=== PATIENT | female | born 2000 | race Caucasian/White ===

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

== ENCOUNTER 2022-01-11 19:32 | Emergency (ER) | payer MEDICAID, SELFPAY ==
--- NOTE | ~2022-01-11 | US_ITS ---
EXAMINATION: US PELVIS CLINICAL INFORMATION: Pelvic pain, question ovarian cyst COMPARISON: CT 02/14/2021 TECHNIQUE: Ultrasound of the pelvis is performed using both transabdominal and transvaginal transducers along with Doppler. Transvaginal imaging is performed due to inadequate visualization transabdominally. FINDINGS: The uterus measures 7.5 cm in length and 3.4 x 3.7 cm in AP and transverse dimensions. Endometrial stripe measures 0.5 cm in thickness. The right ovary measures 10.1 x 5.6 x 9.8 cm. Numerous complex cystic structures are present in the right ovary. This includes a 9.2 x 6.2 x 9.4 cm structure with uniform internal echoes. A similar-appearing complex structure measures 3.1 x 2.4 x 1.9 cm with possible solid component. There is also a 3.1 x 3.7 x 3.2 cm cyst. The left ovary measures 6.8 x 4.5 x 5.5 cm. There is a left ovarian complex cystic structure measuring 5.6 x 4.7 x 5.6 cm which also demonstrates diffuse internal echoes and suggestion of a solid component. Doppler evaluation demonstrates bilateral ovarian flow. No free fluid is seen. US/US pelvic and transvaginal IMPRESSION: Multiple large complex cystic structures in the bilateral ovaries, which were also present at least to some degree on CT 02/14/2021. These may represent endometriomas, and evaluation with pre and postcontrast pelvic MRI is recommended.
--- NOTE | ~2022-01-11 | US_ITS ---
EXAMINATION: US PELVIS CLINICAL INFORMATION: Pelvic pain, question ovarian cyst COMPARISON: CT 02/14/2021 TECHNIQUE: Ultrasound of the pelvis is performed using both transabdominal and transvaginal transducers along with Doppler. Transvaginal imaging is performed due to inadequate visualization transabdominally. FINDINGS: The uterus measures 7.5 cm in length and 3.4 x 3.7 cm in AP and transverse dimensions. Endometrial stripe measures 0.5 cm in thickness. The right ovary measures 10.1 x 5.6 x 9.8 cm. Numerous complex cystic structures are present in the right ovary. This includes a 9.2 x 6.2 x 9.4 cm structure with uniform internal echoes. A similar-appearing complex structure measures 3.1 x 2.4 x 1.9 cm with possible solid component. There is also a 3.1 x 3.7 x 3.2 cm cyst. The left ovary measures 6.8 x 4.5 x 5.5 cm. There is a left ovarian complex cystic structure measuring 5.6 x 4.7 x 5.6 cm which also demonstrates diffuse internal echoes and suggestion of a solid component. Doppler evaluation demonstrates bilateral ovarian flow. No free fluid is seen. US/US pelvic ovarian doppler IMPRESSION: Multiple large complex cystic structures in the bilateral ovaries, which were also present at least to some degree on CT 02/14/2021. These may represent endometriomas, and evaluation with pre and postcontrast pelvic MRI is recommended.
[2022-01-11 19:46] VITALS: BP 123/75; PULSE 97; RESP 17; TEMP 37.2; O2SAT 99; BMI 28.0
[2022-01-11 20:36] LABS: Appearance Urine HAZY; Color Urine YELLOW; Glucose Urine UA NEG (NEG); Leukocyte Esterase Urine NEG (NEG); Nitrite Urine NEG (NEG); PH 7.5 (5.0-8.0); UACC Culture Trigger NO; Urine Blood TRACE (NEG); Urine Ketones 15 MG/DL (NEG); Urine Protein NEG (NEG-TRACE)
[2022-01-11 20:41] LABS: UPreg QC Valid YES; Urine Pregnancy NEGATIVE (NEGATIVE)
[2022-01-11 20:49] LABS: Bacteria Urine 1+ /LPF; Squamous Epithelial Cell Urine 4+ /LPF
[2022-01-11 20:50] LABS: Mucus Urine TRACE /LPF
[2022-01-11] MEDS: Ketorolac Tromethamine 30 MG/ML VIAL IVPUSH (20:50)
[2022-01-11] MEDS: 0.9 % Sodium Chloride 1,000 ML 999 ML IV (20:50)
[2022-01-11 20:51] LABS: MANUAL DIFF FLAG NO
[2022-01-11 20:53] LABS: Basophils Percent Auto 0.2 % (0-2); Eosinophils Percent Auto 0.1 % (0-4); Hematocrit 33.6 % (37.0-47.0); Hemoglobin 10.7 g/dl (12.0-16.0); Imm Gran Abs Auto 0.04 X10*3/uL (0.00-0.03); Imm Gran Pct Auto 0.4 % (0.0-0.4); Lymphocytes Absolute Auto 1.3 X10*3/uL (1.2-4.9); Lymphocytes Percent Auto 11.8 % (20-40); Mean Corpuscular HGB Conc 31.8 g/dl (31.0-35.0); Mean Corpuscular Hemoglobin 27.5 pg (27.0-33.0); Mean Corpuscular Volume 86.4 fL (80.0-98.0); Mean Platelet Volume 8.5 fL (9.4-12.3); Monocytes Absolute Auto 0.6 X10*3/uL (0.1-1.2); Monocytes Percent Auto 5.4 % (2-11); Neutrophils Absolute Auto 8.9 x10*3/uL (2.0-8.3); Neutrophils Percent Auto 82.1 % (45-73); Platelet Count 303 X10*3/uL (160-400); Red Blood Count 3.89 X10*6/uL (4.20-5.50); Red Cell Distribution Width 14.9 % (11.0-16.0); White Blood Count 10.9 X10*3/uL (4.8-10.8)
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
[2022-01-11 21:09] LABS: Alanine Aminotransferase 11 U/L (0-31); Albumin Level 4.3 g/dL (3.5-5.0); Alkaline Phosphatase 86 U/L (39-117); Anion Gap 12 (12-20); Aspartate Amino Transferase 15 U/L (5-31); Bilirubin Total 0.7 mg/dL (0.0-1.0); Blood Urea Nitrogen 6 mg/dL (9-16); Calcium 9.1 mg/dL (8.4-10.2); Carbon Dioxide 24 mmol/L (22-29); Chloride 106 mmol/L (96-108); Creatinine Clr Calc Pharmacy 138.5; Estimated Glomerular Filt Rate > 60; Glucose Random 92 mg/dL (60-115); Sodium 138 mmol/L (135-145); Total Protein 7.4 g/dL (6.5-8.0)
[2022-01-11 22:02] VITALS: BP 110/70; PULSE 85; RESP 18; TEMP 36.9; O2SAT 99
[2022-01-11] MEDS: Morphine Sulfate 4 MG/ML CARTRIDGE IVPUSH (22:50)
[2022-01-11] MEDS: ondansetron HCL 4 MG/2 ML VIAL IVPUSH (22:50)
[2022-01-11 23:01] VITALS: BP 120/71; PULSE 98; RESP 16; O2SAT 99
== END 2022-01-12 00:03 | disposition home or self-care (01) ==
PROVIDERS: Emergency Provider Internal Medicine
DX: E28.2 Polycystic ovarian syndrome (principal); R10.2 Pelvic and perineal pain; Z79.899 Other long term (current) drug therapy
CPT/HCPCS: 36415; 76830; 76856; 80053; 81001; 81025; 85025; 93975; 99284; J1885; J2270; J2405

== ENCOUNTER 2022-01-23 15:35 | Emergency (ER) | payer MEDICAID, SELFPAY ==
[2022-01-23 16:11] VITALS: BP 106/73; PULSE 100; RESP 18; TEMP 36.8; O2SAT 98; BMI 24.0
[2022-01-23 16:24] LABS: Strep A Nucleic Acid Negative (Negative)
[2022-01-23 16:31] LABS: COVID-19 Test Negative (Negative); IDNOW Serial# 16C4AD1C; Influenza A Positive (Negative); Influenza B2 Negative (Negative)
--- NOTE | 2022-01-23 16:52 | ED.GENADULT ---
HPI - General Adult General Chief complaint: General Medical Stated complaint: Sore throat/Headache Time Seen by Provider: 01/23/22 16:43 Source: patient Mode of arrival: ambulatory History of Present Illness HPI narrative: 21-year-old female presenting to the ED complaining of sore throat, myalgias, chills, slight dry cough since yesterday. Denies fever, ear pain, SOB, CP, recent travel, sick contacts Onset (ago): day(s) Related Data Previous Rx's Medication Instructions Recorded hydroxyzine HCl 25 mg tablet 25 mg PO TID PRN #10 tab 02/25/21 naproxen 500 mg tablet 500 mg PO BID PRN #20 tab 11/05/21 nitrofurantoin 100 mg PO BID #14 cap 11/05/21 monohydrate/macrocrystals 100 mg capsule (Macrobid) desogestrel 0.15 mg-ethinyl 1 tab PO DAILY #28 tab 01/11/22 estradiol 0.03 mg tablet (Apri) ibuprofen 600 mg tablet 600 mg PO Q6H PRN #20 tab 01/11/22 tramadol 50 mg tablet 50 mg PO Q6H PRN #20 tab 01/11/22 acetaminophen 500 mg tablet 500 mg PO Q6H PRN #20 tab 01/23/22 (Tylenol Extra Strength) fluticasone propionate 50 2 spray INTRANASAL DAILY #16 g 01/23/22 mcg/actuation nasal spray,suspension (Flonase Allergy Relief) oseltamivir 75 mg capsule (Tamiflu) 75 mg PO BID 5 Days #10 cap 01/23/22 Allergies Allergy/AdvReac Type Severity Reaction Status Date / Time No Known Allergies Allergy Verified 01/23/22 16:13 Review of Systems Review of Systems: Constitutional: No Fever, + Chills ENT/Mouth: No Ear Pain, + Nasal Congestion, No Sinus Pain, No Hoarseness, + sore throat, + Rhinorrhea, No Swallowing Difficulty Cardiovascular: No Chest Pain, No SOB Respiratory: + Cough, No Sputum, No Wheezing Gastrointestinal: No Nausea, No Vomiting, No Diarrhea, No Abdominal pain Genitourinary: No Dysuria, No Urinary Frequency, No Flank Pain Musculoskeletal: No joint pain, + Myalgias, No Joint Swelling Skin: No Skin Lesions, No rash Neuro: No Weakness, No Numbness, No Paresthesias Yes all other systems are reviewed and are negative [facility] Past Medical History Attestation statement: The following information was validated with the patient. Medical History Right upper quadrant pain Surgical History History of cholecystectomy Social History Social History Alcohol intake: never Substance Use Type: Marijuana Advance Directives: No Advance Directives Information Provided: No Physical Exam ED Vital Signs: Vital Signs - 24 hr 01/23/22 16:11 Temperature 98.3 F Pulse Rate 100 Respiratory Rate 18 Blood Pressure 106/73 Pulse Oximetry 98 BMI result Body Mass Index 24.0 Const General: cooperative, healthy appearing and no acute distress Orientation/consciousness: patient oriented x3 Limitations: no limitations HENMT Head: Yes normal to inspection and Yes atraumatic Ears: hearing grossly normal bilaterally, external ears normal, TM's normal bilaterally and mastoids normal General nose exam: Normal external nose present Face and sinus: Yes normal facial exam Throat: Yes uvula midline, Yes abnormal tonsil (Mild bilateral tonsillar swelling, no erythema or exudates), No peritonsillar mass, No uvula laterally displaced and No uvular edema Eyes General: appearance normal, both eyes and all related structures EOM: EOMs intact bilaterally Neck Neck: Yes normal visual inspection and Yes no meningeal signs Resp Effort & Inspection: normal respiratory effort, no respiratory distress and no stridor Auscultation: clear to auscultation bilaterally, no crackles, no rales, no rhonchi and no wheezes Cardio Rate: regular rate Heart sounds: S1 normal heart sound present and S2 normal heart sound present Skin Rashes: no rashes Wounds: no wounds Neuro General: patient oriented x3, tone normal and no meningeal signs Gait exam (Neuro): Normal gait present Extrem General: Yes normal to inspection Course Course Course Narrative: -influenza A positive. COVID-19 and strep negative. Results discussed with patient including worrisome signs and symptoms and strict return precautions Medical Decision Making MDM Narrative Medical decision making narrative: 21-year-old female presenting to the ED complaining of sore throat, myalgias, chills, slight dry cough since yesterday. On exam vital signs stable, NAD/nontoxic appearing. Concern for viral illness vs pharyngitis Symptoms atypical for pneumonia, ACS or PE Plan: COVID-19/influenza testing, rapid strep Medical Records Medical records reviewed: Yes I reviewed the patient's medical records. Lab Data Lab results reviewed: Yes I reviewed the patient's lab results. Labs: Lab Results 01/23/22 01/23/22 01/23/22 Range/Units 16:08 16:08 16:08 COVID-19 (MAGNUS) Negative (Negative) COVID-19 Clin Com See Note Influenza Type A (ROXANNA) Positive A (Negative) Influenza Type B (ROXANNA) Negative (Negative) Influenza A & B Note See Note S. pyogenes GrpA ROXANNA Negative (Negative) Discharge Plan Discharge Clinical Impression: Influenza A Patient Disposition: Home, Self-Care Instructions: Influenza (DC) Additional Instructions: You have the flu. Your contagious. Wash her hands, wear mask Stay hydrated. Take Tylenol Motrin as needed. Tamiflu is antiviral medication, take as prescribed. Stay away from young children/baby's and old people If symptoms persist or worsen, you have fever unresolved with medications, shortness of breath or chest pain please return to the ED Prescriptions: New oseltamivir [Tamiflu] 75 mg capsule 75 mg PO BID 5 Days Qty: 10 0RF acetaminophen [Tylenol Extra Strength] 500 mg tablet 500 mg PO Q6H PRN (Reason: pain or fever) Qty: 20 0RF fluticasone propionate [Flonase Allergy Relief] 50 mcg/actuation spray,suspension 2 spray intranasal DAILY Qty: 16 0RF Rx Instructions: administer into each nostril No Action hydroxyzine HCl 25 mg tablet 25 mg PO TID PRN (Reason: anxiety) Qty: 10 0RF nitrofurantoin monohyd/m-cryst [Macrobid] 100 mg capsule 100 mg PO BID Qty: 14 0RF Rx Instructions: must administer with a meal/food naproxen 500 mg tablet 500 mg PO BID PRN (Reason: pain) Qty: 20 0RF tramadol 50 mg tablet 50 mg PO Q6H PRN (Reason: pain) Qty: 20 0RF ibuprofen 600 mg tablet 600 mg PO Q6H PRN (Reason: pain) Qty: 20 0RF desogestrel-ethinyl estradiol [Apri] 0.15-0.03 mg tablet 1 tab PO DAILY Qty: 28 0RF Referrals: [facility] [Primary Care Provider] - 1 week Stand Alone Forms: Work/School Release Interventions: ED Discharge Assessment Last Done: 01/23/22 17:35 Discharge Date/Time: 01/23/22 17:35
== END 2022-01-23 17:35 | disposition home or self-care (01) ==
PROVIDERS: Emergency Provider Emergency Medicine Emergency Medical Services
DX: J10.1 Influenza due to other identified influenza virus with other respiratory manifestations (principal); R51.9 Headache, unspecified; M79.10 Myalgia, unspecified site; Z20.822 Contact with and (suspected) exposure to COVID-19; Z79.899 Other long term (current) drug therapy
CPT/HCPCS: 87502; 87635; 87651; 99283

== ENCOUNTER 2022-03-30 12:58 | Emergency (ER) | payer MEDICAID, SELFPAY ==
--- NOTE | ~2022-03-30 | XR_ITS ---
EXAMINATION: XR CHEST CLINICAL INFORMATION: Syncope COMPARISON: None TECHNIQUE: Frontal view of the chest was obtained. FINDINGS: No significant abnormality is noted involving the heart, lungs, mediastinum, bony thorax or soft tissues. XR/XR chest 1V IMPRESSION: Unremarkable examination.
[2022-03-30 13:53] VITALS: BP 102/72; PULSE 86; O2SAT 98
[2022-03-30 14:07] VITALS: BP 102/71; PULSE 81; RESP 20; TEMP 36.8; O2SAT 99; BMI 26.6
--- NOTE | 2022-03-30 14:19 | ECG_ITS ---
Test Reason : syncope Blood Pressure : / mmHG Vent. Rate : 081 BPM Atrial Rate : 081 BPM P-R Int : 166 ms QRS Dur : 070 ms QT Int : 340 ms P-R-T Axes : 078 050 047 degrees QTc Int : 394 ms Normal sinus rhythm Normal ECG When compared with ECG of 05-NOV-2021 20:44, No significant change was found Referred By: Generic ED Physician Electronically Signed By:NICOLASA MALLOY
[2022-03-30 15:43] LABS: MANUAL DIFF FLAG NO
[2022-03-30 15:44] LABS: Basophils Absolute Auto 0.1 X10*3/uL (0.0-0.2); Basophils Percent Auto 0.6 % (0-2); Eosinophils Absolute Auto 0.1 X10*3/uL (0.0-0.4); Eosinophils Percent Auto 0.6 % (0-4); Hematocrit 34.1 % (37.0-47.0); Hemoglobin 10.8 g/dl (12.0-16.0); Imm Gran Abs Auto 0.06 X10*3/uL (0.00-0.03); Imm Gran Pct Auto 0.7 % (0.0-0.4); Lymphocytes Absolute Auto 1.3 X10*3/uL (1.2-4.9); Lymphocytes Percent Auto 14.3 % (20-40); Mean Corpuscular HGB Conc 31.7 g/dl (31.0-35.0); Mean Corpuscular Hemoglobin 27.1 pg (27.0-33.0); Mean Corpuscular Volume 85.5 fL (80.0-98.0); Mean Platelet Volume 8.7 fL (9.4-12.3); Monocytes Absolute Auto 0.5 X10*3/uL (0.1-1.2); Monocytes Percent Auto 5.2 % (2-11); Neutrophils Percent Auto 78.6 % (45-73); Platelet Count 371 X10*3/uL (160-400); Red Blood Count 3.99 X10*6/uL (4.20-5.50); Red Cell Distribution Width 14.1 % (11.0-16.0); White Blood Count 8.8 X10*3/uL (4.8-10.8)
[2022-03-30 16:04] LABS: Anion Gap 14 (12-20); Blood Urea Nitrogen 7 mg/dL (9-16); Calcium 9.6 mg/dL (8.4-10.2); Carbon Dioxide 24 mmol/L (22-29); Chloride 104 mmol/L (96-108); Creatinine Clr Calc Pharmacy 127.2; Estimated Glomerular Filt Rate > 60; Glucose Random 87 mg/dL (60-115); Potassium 4.3 mmol/L (3.3-5.1); Sodium 138 mmol/L (135-145)
[2022-03-30 16:11] LABS: Troponin-I High Sensitivity < 3.5 ng/L (<3.5-17.0)
== END 2022-03-30 19:00 | disposition left against medical advice (07) ==
PROVIDERS: Emergency Provider Emergency Medicine
DX: R55 Syncope and collapse (principal); R42 Dizziness and giddiness; Z79.899 Other long term (current) drug therapy
CPT/HCPCS: 36415; 71045; 80048; 84484; 85025; 93005; 99281; 99283

== ENCOUNTER 2022-05-10 14:14 | Emergency (ER) | payer MEDICAID, SELFPAY ==
[2022-05-10 15:07] VITALS: BP 105/65; PULSE 78; RESP 18; TEMP 37.2; O2SAT 98; BMI 27.4
[2022-05-10 15:19] LABS: COVID-19 Test Negative (Negative)
== END 2022-05-10 20:08 | disposition left against medical advice (07) ==
PROVIDERS: Emergency Provider Emergency Medicine
DX: Z20.822 Contact with and (suspected) exposure to COVID-19 (principal)
CPT/HCPCS: 87635; 99281; 99283

== ENCOUNTER 2022-06-04 15:13 | Emergency (ER) | payer MEDICAID, SELFPAY ==
--- NOTE | ~2022-06-04 | XR_ITS ---
EXAMINATION: XR CHEST CLINICAL INFORMATION: Covid. Pneumonia. COMPARISON: Chest x-ray 03/30/2022 TECHNIQUE: Frontal view of the chest was obtained. FINDINGS: No significant abnormality is noted involving the heart, lungs, mediastinum, bony thorax or soft tissues. XR/XR chest 1V IMPRESSION: Unremarkable examination.
[2022-06-04 15:26] VITALS: BP 129/69; PULSE 104; RESP 19; TEMP 37.4; O2SAT 99; BMI 26.5
[2022-06-04] MEDS: Acetaminophen 325 MG TABLET 975 MG PO (17:21)
[2022-06-04] MEDS: Ondansetron ODT 4 MG TAB.RAPDIS TRANSLINGU (18:59)
--- NOTE | 2022-06-04 19:05 | ED_ITS ---
HPI - General Adult General Chief complaint: Upper Respiratory Symptoms <ESTER Briggs Last Filed: 06/05/22 10:43> Stated complaint: covid +, anemic, throwing up light blood <ESTER Briggs Last Filed: 06/05/22 10:43> Time Seen by Provider: 06/04/22 17:55 <ESTER Briggs Last Filed: 06/05/22 10:43> Source: patient <ESTER Briggs Last Filed: 06/05/22 10:43> Mode of arrival: ambulatory <ESTER Briggs Last Filed: 06/05/22 10:43> Limitations: no limitations <ESTER Briggs Last Filed: 06/05/22 10:43> History of Present Illness HPI narrative: 22-year-old female presents to ED for body aches, headaches, chills, nausea, and vomitting. Patient states he tested positive for COVID at home today. Patient states having symptoms for the past 2 days. Patient denies any coughing, chest pain, shortness of breath. Patient states she felt tired and weak so she wanted make sure her blood count was not low. Patient states she is anemic. Patient denies any vaginal bleeding, rectal bleeding, coughing up blood, or vomiting blood. <ESTER Briggs Last Filed: 06/05/22 10:43> Related Data Home medications: Previous Rx's Medication Instructions Recorded hydroxyzine HCl 25 mg tablet 25 mg PO TID PRN anxiety #10 tabs 02/25/21 naproxen 500 mg tablet 500 mg PO BID PRN pain #20 tabs 11/05/21 nitrofurantoin 100 mg PO BID #14 caps 11/05/21 monohydrate/macrocrystals 100 mg capsule (Macrobid) desogestrel 0.15 mg-ethinyl 1 tab PO DAILY #28 tabs 01/11/22 estradiol 0.03 mg tablet (Apri) ibuprofen 600 mg tablet 600 mg PO Q6H PRN pain #20 tabs 01/11/22 tramadol 50 mg tablet 50 mg PO Q6H PRN pain #20 tabs 01/11/22 acetaminophen 500 mg tablet 500 mg PO Q6H PRN pain or fever 01/23/22 (Tylenol Extra Strength) #20 tabs fluticasone propionate 50 2 spray intranasal DAILY #16 grams 01/23/22 mcg/actuation nasal spray,suspension (Flonase Allergy Relief) oseltamivir 75 mg capsule (Tamiflu) 75 mg PO BID 5 days #10 caps 01/23/22 <ESTER Briggs - Last Filed: 06/05/22 10:43> Allergies/adverse reactions: Allergies Allergy/AdvReac Type Severity Reaction Status Date / Time No Known Allergies Allergy Verified 03/30/22 14:15 <ESTER Briggs - Last Filed: 06/05/22 10:43> Review of Systems Review of Systems: Nausea, vomiting, weakness, COVID positive <ESTER Briggs - Last Filed: 06/05/22 10:43> Yes all other systems are reviewed and are negative <ESTER Briggs - Last Filed: 06/05/22 10:43> [facility] Past Medical History Medical History: Medical History Right upper quadrant pain <ESTER Briggs - Last Filed: 06/05/22 10:43> Surgical History: Surgical History History of cholecystectomy <ESTER Briggs - Last Filed: 06/05/22 10:43> Social History Social History: Social History Alcohol intake: never Substance Use Type: Marijuana Advance Directives: No Advance Directives Information Provided: No <ESTER Briggs - Last Filed: 06/05/22 10:43> Physical Exam ED Vital Signs: Vital Signs - 24 hr 06/04/22 15:26 Temperature 99.4 F Pulse Rate 104 H Respiratory Rate 19 Blood Pressure 129/69 Pulse Oximetry 99 Oxygen Delivery Method Room Air BMI result Body Mass Index 26.5 <ESTER Briggs - Last Filed: 06/05/22 10:43> Vital Signs - 24 hr 06/04/22 15:26 Temperature 99.4 F Pulse Rate 104 H Respiratory Rate 19 Blood Pressure 129/69 Pulse Oximetry 99 Oxygen Delivery Method Room Air BMI result Body Mass Index 26.5 <Anjali Myrick [facility] Last Filed: 06/04/22 20:14> Const General: cooperative, healthy appearing, comfortable, no acute distress, well developed, alert, awake and Physically active <ESTER Briggs Last Filed: 10:43> Orientation/consciousness: oriented to person, oriented to place, oriented to time and patient oriented x3 <ESTER Briggs Last Filed: 06/05/22 10:43> HENMT Head: Yes normal to inspection, Yes No palpable skull fracture present, Yes n ormocephalic, Yes atraumatic and No abrasion <Kael Bronson [facility] Last Filed: 06/05/22 10:43> Eyes General: appearance normal, both eyes and all related structures <ESTER Briggs Last Filed: 06/05/22 10:43> Neck Neck: Yes normal visual inspection, Yes full ROM, Yes no lymphadenopathy, Yes no meningeal signs, Yes trachea midline, Yes supple, No anterior neck swelling and No tender <ESTER Briggs Last Filed: 06/05/22 10:43> Chest Chest palpation & inspection: normal inspection of the chest and normal palpation of entire chest wall <ESTER Briggs Last Filed: 06/05/22 10:43> Resp Effort & Inspection: normal respiratory effort and able to speak in complete sentences <Kael Bronson [facility] Last Filed: 06/05/22 10:43> Auscultation: clear to auscultation bilaterally <ESTER Briggs Last Filed: 06/05/22 10:43> Cardio Jugular venous distension: no JVD <Kael Bronson [facility] Last Filed: 06/05/22 10:43> Heart sounds: S1 normal heart sound present and S2 normal heart sound present <ESTER Briggs Last Filed: 06/05/22 10:43> GI Inspection: Yes normal to inspection and No abdominal wall ecchymosis <ESTER Briggs Last Filed: 06/05/22 10:43> Palpation (GI): Soft to palpation, not firm, nontender, no guarding and not rigid <ESTER Briggs Last Filed: 06/05/22 10:43> General: No CVA tenderness and Yes no CVA tenderness <Kael Audie, PA Natalia Last Filed: 06/05/22 10:43> Back/Spine/Pelvis Back: no CVA tenderness, No CVA tenderness and No back tenderness <Kael Audie, PA Natalia Last Filed: 06/05/22 10:43> Skin General skin exam: no rashes or lesions noted and elasticity normal <Kael Audie, PA Natalia Last Filed: 06/05/22 10:43> Neuro General: oriented to person, oriented to place, oriented to time, patient oriented x3, gait normal and no meningeal signs <Kael Audie, PA Natalia Last Filed: 06/05/22 10:43> Cranial nerves: Yes CN's II-XII intact bilaterally <ESTER Briggs Natalia Last Filed: 06/05/22 10:43> Extrem General: Yes normal to inspection and Yes full ROM <ESTER Briggs Natalia Last Filed: 06/05/22 10:43> Psych Appearance: grossly normal, well kempt and not disheveled <ESTER Briggs Natalia Last Filed: 06/05/22 10:43> Course Course Course Narrative: Patient well-appearing. Will order labs due to the patient stating she is anemic and feeling weak. Chest x-ray will be ordered although patient denies any shortness of breath or coughing. Patient is not having chest pain, shortness of breath, leg swelling, calf pain. Not suspecting PE, myocarditis, M I. EKG, D-dimer, and troponin not indicated. Case signed out to [facility], [place]. Patient given oral hydration <ESTER Briggs Natalia Last Filed: 06/05/22 10:43> Patient well-appearing. Will order labs due to the patient stating she is anemic and feeling weak. Chest x-ray will be ordered although patient denies any shortness of breath or coughing. Patient is not having chest pain, shortness of breath, leg swelling, calf pain. Not suspecting PE, myocarditis, [place]. EKG, D-dimer, and troponin not indicated. Case signed out to [facility], [place]. Patient given oral hydration 2013: Patient's work up is normal, no acute findings other than her previously known positive COVID-19 status. All results explained to the patient. Stressed strict return precautions to the patient. <ESTER Gamboa - Last Filed: 06/04/22 20:14> Medical Decision Making Lab Data Result diagrams: : 06/04/22 19:17 06/04/22 19:17 <ESTER Briggs - Last Filed: 06/05/22 10:43> Labs: Lab Results 06/04/22 06/04/22 06/04/22 Range/Units 19:17 19:17 19:17 WBC 5.3 (4.8-10.8) X10*3/uL RBC 3.75 L (4.20-5.50) X10*6/uL Hgb 9.8 L (12.0-16.0) g/dl Hct 29.7 L (37.0-47.0) % MCV 79.2 L (80.0-98.0) fL MCH 26.1 L (27.0-33.0) pg MCHC 33.0 (31.0-35.0) g/dl RDW 14.3 (11.0-16.0) % Plt Count 293 (160-400) X10*3/uL MPV 8.5 L (9.4-12.3) fL Immature Gran % (Auto) 0.4 (0.0-0.4) % Neut % (Auto) 83.9 H (45-73) % Lymph % (Auto) 4.9 L (20-40) % Coleman % (Auto) 9.8 (2-11) % Eos % (Auto) 0.2 (0-4) % Baso % (Auto) 0.8 (0-2) % Lymph # (Auto) 0.3 L (1.2-4.9) X10*3/uL Coleman # (Auto) 0.5 (0.1-1.2) X10*3/uL Eos # (Auto) 0.0 (0.0-0.4) X10*3/uL Baso # (Auto) 0.0 (0.0-0.2) X10*3/uL Abs Immat Gran (auto) 0.02 (0.00-0.03) X10*3/uL Absolute Neuts (auto) 4.5 (2.0-8.3) x10*3/uL Absolute Nucleated RBC 0.000 (0.0-0.012) X10*3/uL Nucleated RBC % (auto) 0.0 (0.0-0.2) /100WBC PT 12.7 (10.0-13.1) SEC INR 1.1 (0.9-1.1) APTT 31.0 (26.0-36.4) SEC Sodium 139 (135-145) mmol/L Potassium 3.7 (3.3-5.1) mmol/L Chloride 108 (96-108) mmol/L Carbon Dioxide 19 L (22-29) mmol/L Anion Gap 16 (12-20) BUN 8 L (9-16) mg/dL Creatinine 0.62 (0.5-1.4) mg/dL Estim Creat Clear Calc 134.0 Estimated GFR > 60 Random Glucose 96 (60-115) mg/dL Calcium 8.7 D (8.4-10.2) mg/dL Total Bilirubin 0.3 (0.0-1.0) mg/dL AST 19 (5-31) U/L ALT 13 (0-31) U/L Alkaline Phosphatase 79 (39-117) U/L Total Protein 7.1 (6.5-8.0) g/dL Albumin 4.2 (3.5-5.0) g/dL Beta HCG, Quant < 2 mIU/mL COVID-19 (MAGNUS) (Negative) COVID-19 Clin Com 06/04/22 Range/Units 19:21 WBC (4.8-10.8) X10*3/uL RBC (4.20-5.50) X10*6/uL Hgb (12.0-16.0) g/dl Hct (37.0-47.0) % MCV (80.0-98.0) fL MCH (27.0-33.0) pg MCHC (31.0-35.0) g/dl RDW (11.0-16.0) % Plt Count (160-400) X10*3/uL MPV (9.4-12.3) fL Immature Gran % (Auto) (0.0-0.4) % Neut % (Auto) (45-73) % Lymph % (Auto) (20-40) % Coleman % (Auto) (2-11) % Eos % (Auto) (0-4) % Baso % (Auto) (0-2) % Lymph # (Auto) (1.2-4.9) X10*3/uL Coleman # (Auto) (0.1-1.2) X10*3/uL Eos # (Auto) (0.0-0.4) X10*3/uL Baso # (Auto) (0.0-0.2) X10*3/uL Abs Immat Gran (auto) (0.00-0.03) X10*3/uL Absolute Neuts (auto) (2.0-8.3) x10*3/uL Absolute Nucleated RBC (0.0-0.012) X10*3/uL Nucleated RBC % (auto) (0.0-0.2) /100WBC PT (10.0-13.1) SEC INR (0.9-1.1) APTT (26.0-36.4) SEC Sodium (135-145) mmol/L Potassium (3.3-5.1) mmol/L Chloride (96-108) mmol/L Carbon Dioxide (22-29) mmol/L Anion Gap (12-20) BUN (9-16) mg/dL Creatinine (0.5-1.4) mg/dL Estim Creat Clear Calc Estimated GFR Random Glucose (60-115) mg/dL Calcium (8.4-10.2) mg/dL Total Bilirubin (0.0-1.0) mg/dL AST (5-31) U/L ALT (0-31) U/L Alkaline Phosphatase (39-117) U/L Total Protein (6.5-8.0) g/dL Albumin (3.5-5.0) g/dL Beta HCG, Quant mIU/mL COVID-19 (MAGNUS) Positive A (Negative) COVID-19 Clin Com See Note <ESTER Briggs - Last Filed: 06/05/22 10:43> Lab Results 06/04/22 06/04/22 06/04/22 Range/Units 19:17 19:17 19:17 WBC 5.3 (4.8-10.8) X10*3/uL RBC 3.75 L (4.20-5.50) X10*6/uL Hgb 9.8 L (12.0-16.0) g/dl Hct 29.7 L (37.0-47.0) % MCV 79.2 L (80.0-98.0) fL MCH 26.1 L (27.0-33.0) pg MCHC 33.0 (31.0-35.0) g/dl RDW 14.3 (11.0-16.0) % Plt Count 293 (160-400) X10*3/uL MPV 8.5 L (9.4-12.3) fL Immature Gran % (Auto) 0.4 (0.0-0.4) % Neut % (Auto) 83.9 H (45-73) % Lymph % (Auto) 4.9 L (20-40) % Coleman % (Auto) 9.8 (2-11) % Eos % (Auto) 0.2 (0-4) % Baso % (Auto) 0.8 (0-2) % Lymph # (Auto) 0.3 L (1.2-4.9) X10*3/uL Coleman # (Auto) 0.5 (0.1-1.2) X10*3/uL Eos # (Auto) 0.0 (0.0-0.4) X10*3/uL Baso # (Auto) 0.0 (0.0-0.2) X10*3/uL Abs Immat Gran (auto) 0.02 (0.00-0.03) X10*3/uL Absolute Neuts (auto) 4.5 (2.0-8.3) x10*3/uL Absolute Nucleated RBC 0.000 (0.0-0.012) X10*3/uL Nucleated RBC % (auto) 0.0 (0.0-0.2) /100WBC PT 12.7 (10.0-13.1) SEC INR 1.1 (0.9-1.1) APTT 31.0 (26.0-36.4) SEC Sodium 139 (135-145) mmol/L Potassium 3.7 (3.3-5.1) mmol/L Chloride 108 (96-108) mmol/L Carbon Dioxide 19 L (22-29) mmol/L Anion Gap 16 (12-20) BUN 8 L (9-16) mg/dL Creatinine 0.62 (0.5-1.4) mg/dL Estim Creat Clear Calc 134.0 Estimated GFR > 60 Random Glucose 96 (60-115) mg/dL Calcium 8.7 D (8.4-10.2) mg/dL Total Bilirubin 0.3 (0.0-1.0) mg/dL AST 19 (5-31) U/L ALT 13 (0-31) U/L Alkaline Phosphatase 79 (39-117) U/L Total Protein 7.1 (6.5-8.0) g/dL Albumin 4.2 (3.5-5.0) g/dL Beta HCG, Quant < 2 mIU/mL COVID-19 (MAGNUS) (Negative) COVID-19 Clin Com 06/04/22 Range/Units 19:21 WBC (4.8-10.8) X10*3/uL RBC (4.20-5.50) X10*6/uL Hgb (12.0-16.0) g/dl Hct (37.0-47.0) % MCV (80.0-98.0) fL MCH (27.0-33.0) pg MCHC (31.0-35.0) g/dl RDW (11.0-16.0) % Plt Count (160-400) X10*3/uL MPV (9.4-12.3) fL Immature Gran % (Auto) (0.0-0.4) % Neut % (Auto) (45-73) % Lymph % (Auto) (20-40) % Coleman % (Auto) (2-11) % Eos % (Auto) (0-4) % Baso % (Auto) (0-2) % Lymph # (Auto) (1.2-4.9) X10*3/uL Coleman # (Auto) (0.1-1.2) X10*3/uL Eos # (Auto) (0.0-0.4) X10*3/uL Baso # (Auto) (0.0-0.2) X10*3/uL Abs Immat Gran (auto) (0.00-0.03) X10*3/uL Absolute Neuts (auto) (2.0-8.3) x10*3/uL Absolute Nucleated RBC (0.0-0.012) X10*3/uL Nucleated RBC % (auto) (0.0-0.2) /100WBC PT (10.0-13.1) SEC INR (0.9-1.1) APTT (26.0-36.4) SEC Sodium (135-145) mmol/L Potassium (3.3-5.1) mmol/L Chloride (96-108) mmol/L Carbon Dioxide (22-29) mmol/L Anion Gap (12-20) BUN (9-16) mg/dL Creatinine (0.5-1.4) mg/dL Estim Creat Clear Calc Estimated GFR Random Glucose (60-115) mg/dL Calcium (8.4-10.2) mg/dL Total Bilirubin (0.0-1.0) mg/dL AST (5-31) U/L ALT (0-31) U/L Alkaline Phosphatase (39-117) U/L Total Protein (6.5-8.0) g/dL Albumin (3.5-5.0) g/dL Beta HCG, Quant mIU/mL COVID-19 (MAGNUS) Positive A (Negative) COVID-19 Clin Com See Note <ESTER Gamboa - Last Filed: 06/04/22 20:14> Discharge Plan Discharge Clinical Impression: COVID-19 <ESTER Briggs - Last Filed: 06/05/22 10:43> Patient Disposition: Home, Self-Care <ESTER Briggs Last Filed: 06/05/22 10:43> Instructions: COVID-19 (Coronavirus Disease 2019) (ED) <ESTER Briggs Last Filed: 06/05/22 10:43> Additional Instructions: Return to the ED immediately for any chest pain, shortness of breath, w eakness, dizziness, coughing up blood, leg swelling, calf pain, or any other concerning symptoms. Since you are not vaccinated recommend 7 days isolation. <ESTER Briggs - Last Filed: 06/05/22 10:43> Prescriptions: No Action hydroxyzine HCl 25 mg tablet 25 mg PO TID PRN (Reason: anxiety) Qty: 10 0RF nitrofurantoin monohyd/m-cryst [Macrobid] 100 mg capsule 100 mg PO BID Qty: 14 0RF Rx Instructions: must administer with a meal/food naproxen 500 mg tablet 500 mg PO BID PRN (Reason: pain) Qty: 20 0RF tramadol 50 mg tablet 50 mg PO Q6H PRN (Reason: pain) Qty: 20 0RF ibuprofen 600 mg tablet 600 mg PO Q6H PRN (Reason: pain) Qty: 20 0RF desogestrel-ethinyl estradiol [Apri] 0.15-0.03 mg tablet 1 tab PO DAILY Qty: 28 0RF oseltamivir [Tamiflu] 75 mg capsule 75 mg PO BID 5 Days Qty: 10 0RF acetaminophen [Tylenol Extra Strength] 500 mg tablet 500 mg PO Q6H PRN (Reason: pain or fever) Qty: 20 0RF fluticasone propionate [Flonase Allergy Relief] 50 mcg/actuation spray,suspension 2 spray intranasal DAILY Qty: 16 0RF Rx Instructions: administer into each nostril <ESTER Briggs - Last Filed: 06/05/22 10:43> Stand Alone Forms: Work/School Release <ESTER Briggs - Last Filed: 06/05/22 10:43> Interventions: ED Discharge Assessment Last Done: 06/04/22 20:39 <ESTER Briggs - Last Filed: 06/05/22 10:43> Discharge Date/Time: 06/04/22 20:40 <ESTER Briggs - Last Filed: 06/05/22 10:43> Print Language: Turkmen <ESTER Briggs - Last Filed: 06/05/22 10:43>
[2022-06-04 19:22] LABS: Basophils Percent Auto 0.8 % (0-2); Eosinophils Percent Auto 0.2 % (0-4); Hematocrit 29.7 % (37.0-47.0); Hemoglobin 9.8 g/dl (12.0-16.0); Imm Gran Abs Auto 0.02 X10*3/uL (0.00-0.03); Imm Gran Pct Auto 0.4 % (0.0-0.4); Lymphocytes Absolute Auto 0.3 X10*3/uL (1.2-4.9); Lymphocytes Percent Auto 4.9 % (20-40); MANUAL DIFF FLAG NO; Mean Corpuscular Hemoglobin 26.1 pg (27.0-33.0); Mean Corpuscular Volume 79.2 fL (80.0-98.0); Mean Platelet Volume 8.5 fL (9.4-12.3); Monocytes Absolute Auto 0.5 X10*3/uL (0.1-1.2); Monocytes Percent Auto 9.8 % (2-11); Neutrophils Absolute Auto 4.5 x10*3/uL (2.0-8.3); Neutrophils Percent Auto 83.9 % (45-73); Platelet Count 293 X10*3/uL (160-400); Red Blood Count 3.75 X10*6/uL (4.20-5.50); Red Cell Distribution Width 14.3 % (11.0-16.0); White Blood Count 5.3 X10*3/uL (4.8-10.8)
[2022-06-04] MEDS: Ibuprofen 800 MG TABLET PO (19:26)
[2022-06-04 19:28] LABS: INTERNATIONAL NORM RATIO 1.1 (0.9-1.1); Prothrombin Time 12.7 SEC (10.0-13.1)
[2022-06-04 19:36] LABS: COVID-19 Test Positive (Negative); IDNOW Serial# 16C4AD1C
[2022-06-04 20:00] LABS: Alanine Aminotransferase 13 U/L (0-31); Albumin Level 4.2 g/dL (3.5-5.0); Alkaline Phosphatase 79 U/L (39-117); Anion Gap 16 (12-20); Aspartate Amino Transferase 19 U/L (5-31); Bilirubin Total 0.3 mg/dL (0.0-1.0); Blood Urea Nitrogen 8 mg/dL (9-16); Calcium 8.7 mg/dL (8.4-10.2); Carbon Dioxide 19 mmol/L (22-29); Chloride 108 mmol/L (96-108); Estimated Glomerular Filt Rate > 60; Glucose Random 96 mg/dL (60-115); Potassium 3.7 mmol/L (3.3-5.1); Sodium 139 mmol/L (135-145); Total Protein 7.1 g/dL (6.5-8.0)
[2022-06-04 20:05] LABS: HCG Quantitative < 2 mIU/mL
== END 2022-06-04 20:40 | disposition home or self-care (01) ==
PROVIDERS: Physician Assistant; Emergency Provider Emergency Medicine Emergency Medical Services
DX: U07.1 COVID-19 (principal); R51.9 Headache, unspecified
CPT/HCPCS: 71045; 80053; 84702; 85025; 85610; 85730; 87635; 99283

== ENCOUNTER 2022-07-21 11:25 | Emergency (ER) | payer MEDICAID, SELFPAY ==
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
[2022-07-21 11:35] VITALS: BP 111/64; BP 122/72; PULSE 66; PULSE 87; RESP 16; TEMP 36.7; O2SAT 100; O2SAT 98; BMI 26.5
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
[2022-07-21] MEDS: Acetaminophen 325 MG TABLET 975 MG PO (12:02)
[2022-07-21 13:07] LABS: UPreg QC Valid YES; Urine Pregnancy NEGATIVE (NEGATIVE)
--- NOTE | 2022-07-21 13:59 | PC.NURSE ---
PT REFUSING TO STAY FOR RECOMMENDED CT SCAN THAT WAS ORDERED BY PROVIDER. IMPORTANCE OF STAYING FOR EXAM EXPLAINED TO PATIENT. RISKS DISCUSSED UP TO AND INCLUDING . PT CONTINUES TO DECLINE SCAN DC INSTRUCTIONS REVIEWED. PT AWAKE, ALERT AND ORIENTED X 3. SKIN WARM AND DRY. NEUROS INTACT. +CMS TO ALL EXTREMITIES
== END 2022-07-21 14:04 | disposition home or self-care (01) ==
PROVIDERS: Physician Assistant; Emergency Provider Emergency Medicine
DX: S83.91XA Sprain of unspecified site of right knee, initial encounter (principal); S49.91XA Unspecified injury of right shoulder and upper arm, initial encounter; M25.511 Pain in right shoulder; M25.561 Pain in right knee; R40.2410 Glasgow coma scale score 13-15, unspecified time; R42 Dizziness and giddiness; V03.90XA Pedestrian on foot injured in collision with car, pick-up truck or van, unspecified whether traffic or nontraffic accident, initial encounter; Y93.9 Activity, unspecified; Y92.410 Unspecified street and highway as the place of occurrence of the external cause; Y99.9 Unspecified external cause status; Z79.899 Other long term (current) drug therapy
CPT/HCPCS: 73030; 73564; 81025; 99283

== ENCOUNTER 2022-10-06 09:25 | Emergency (ER) | payer MEDICAID, SELFPAY ==
--- NOTE | 2022-10-06 | ECG_ITS ---
Test Reason : DIZZINESS Blood Pressure : / mmHG Vent. Rate : 075 BPM Atrial Rate : 075 BPM P-R Int : 166 ms QRS Dur : 072 ms QT Int : 382 ms P-R-T Axes : 075 025 026 degrees QTc Int : 426 ms Normal sinus rhythm Normal ECG When compared with ECG of 30-MAR-2022 14:34, No significant change was found Referred By: Generic ED Physician Electronically Signed By:NICOLASA MALLOY
[2022-10-06 09:30] VITALS: BP 118/68; PULSE 86; O2SAT 99
[2022-10-06 09:58] VITALS: BP 125/59; PULSE 84; RESP 18; TEMP 36.6; O2SAT 98; BMI 30.2
[2022-10-06 10:19] LABS: MANUAL DIFF FLAG NO
[2022-10-06 10:22] LABS: Basophils Percent Auto 0.5 % (0-2); Eosinophils Absolute Auto 0.1 X10*3/uL (0.0-0.4); Eosinophils Percent Auto 1.6 % (0-4); Hemoglobin 10.7 g/dl (12.0-16.0); Imm Gran Abs Auto 0.04 X10*3/uL (0.00-0.03); Imm Gran Pct Auto 0.5 % (0.0-0.4); Lymphocytes Absolute Auto 1.3 X10*3/uL (1.2-4.9); Mean Corpuscular HGB Conc 31.5 g/dl (31.0-35.0); Mean Corpuscular Hemoglobin 25.3 pg (27.0-33.0); Mean Corpuscular Volume 80.4 fL (80.0-98.0); Mean Platelet Volume 8.4 fL (9.4-12.3); Monocytes Absolute Auto 0.4 X10*3/uL (0.1-1.2); Monocytes Percent Auto 5.7 % (2-11); Neutrophils Absolute Auto 5.7 x10*3/uL (2.0-8.3); Neutrophils Percent Auto 74.7 % (45-73); Platelet Count 333 X10*3/uL (160-400); Red Blood Count 4.23 X10*6/uL (4.20-5.50); Red Cell Distribution Width 15.9 % (11.0-16.0); White Blood Count 7.6 X10*3/uL (4.8-10.8)
[2022-10-06 10:33] LABS: Appearance Urine Cloudy; Color Urine Dark Yellow; Glucose Urine UA Negative (Negative); Leukocyte Esterase Urine Small (1+) (Negative); Nitrite Urine Negative (Negative); PH 6.5 (5.0-9.0); Specific Gravity - Urine 1.025 (1.005-1.025); UMIC TRIGGER UACC YES; Urine Blood Large (3+) (Negative); Urine Ketones Negative (Negative); Urine Protein 30 (1+) mg/dL (Neg-Trace)
[2022-10-06 10:34] LABS: Bacteria Urine 1+ (None Seen); Hyaline Casts Urine 0-2 /LPF (0-2); RBC Urine >20 /HPF (0-2); UACC Culture Trigger YES
[2022-10-06 10:37] LABS: Alanine Aminotransferase 8 U/L (0-31); Albumin Level 4.1 g/dL (3.5-5.0); Alkaline Phosphatase 78 U/L (39-117); Anion Gap 9 (12-20); Aspartate Amino Transferase 13 U/L (5-31); Bilirubin Total 0.2 mg/dL (0.0-1.0); Blood Urea Nitrogen 11 mg/dL (9-16); Carbon Dioxide 24 mmol/L (22-29); Chloride 109 mmol/L (96-108); Creatinine Clr Calc Pharmacy 142.7; Estimated Glomerular Filt Rate > 60; Glucose Random 97 mg/dL (60-115); Potassium 3.9 mmol/L (3.3-5.1); Sodium 138 mmol/L (135-145)
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
[2022-10-06 12:55] LABS: HCG Quantitative < 2 mIU/mL
== END 2022-10-06 14:10 | disposition home or self-care (01) ==
PROVIDERS: Emergency Provider Emergency Medicine
DX: R42 Dizziness and giddiness (principal); R11.0 Nausea; F12.90 Cannabis use, unspecified, uncomplicated
CPT/HCPCS: 36415; 80053; 81001; 84702; 85025; 87086; 93005; 99282; 99283

== ENCOUNTER 2023-01-05 12:58 | Emergency (ER) | payer MEDICAID, SELFPAY ==
--- NOTE | ~2023-01-05 | XR_ITS ---
EXAMINATION: XR WRIST, LEFT XR HAND, LEFT CLINICAL INFORMATION: Left hand and wrist pain COMPARISON: None available. TECHNIQUE: PA, lateral, and oblique views of the left wrist and PA, lateral, and oblique views of the left hand FINDINGS: LEFT WRIST: The bones and soft tissues are normal. No fracture. Alignment is anatomic. Joint spaces are maintained. No erosions or soft tissue calcifications. LEFT HAND: The bones and soft tissues are normal. No fracture. Alignment is anatomic. Joint spaces are maintained. No erosions or soft tissue calcifications. XR/XR hand wrist LT IMPRESSION: Normal left hand and wrist.
[2023-01-05 13:10] VITALS: BP 126/78; PULSE 84; RESP 15; TEMP 36.6; O2SAT 99; BMI 30.1
--- NOTE | 2023-01-05 13:11 | ED.EXTPRO ---
HPI - Extremity Problem General Chief complaint: Extremity Injury, Upper <ESTER Grace Last Filed: 01/05/23 13:12> Stated complaint: L hand inj <ESTER Grace - Last Filed: 01/05/23 13:12> Time Seen by Provider: 01/05/23 14:22 <ESTER Grace - Last Filed: 01/05/23 13:12> Source: patient <ESTER Moreno Last Filed: 01/05/23 19:23> Mode of arrival: ambulatory <ESTER Moreno Last Filed: 01/05/23 19:23> Limitations: no limitations <ESTER Moreno Last Filed: 01/05/23 19:23> History of Present Illness HPI Narrative: 22-year-old female with no significant PMHx presents to the ED c/o pain, swelling, and discoloration to the left thumb after closing a car door on it 2 days ago. Reports limited ROM due to pain & tingling. Took extra-strength Tylenol x4 without relief. Denies erythema, numbness, weakness, open wound, fever, chills, SOB, or chest pain. <ESTER Moreno Last Filed: 01/05/23 19:23> MD Complaint: extremity pain <ESTER Moreno Last Filed: 01/05/23 19:23> Onset (ago): day(s) (2) <ESTER Moreno Last Filed: 01/05/23 19:23> Pain Consistency: constant <ESTER Moreno Last Filed: 01/05/23 19:23> Location: left (thumb) <ESTER Moreno Last Filed: 01/05/23 19:23> Relieving factors: immobilization <ESTER Moreno Last Filed: 01/05/23 19:23> Exacerbating factors: range of motion and palpation <ESTER Moreno Last Filed: 01/05/23 19:23> Related Data Home medications: Previous Rx's Medication Instructions Recorded hydroxyzine HCl 25 mg tablet 25 mg PO TID PRN anxiety #10 tabs 02/25/21 naproxen 500 mg tablet 500 mg PO BID PRN pain #20 tabs 11/05/21 nitrofurantoin 100 mg PO BID #14 caps 11/05/21 monohydrate/macrocrystals 100 mg capsule (Macrobid) desogestrel 0.15 mg-ethinyl 1 tab PO DAILY #28 tabs 01/11/22 estradiol 0.03 mg tablet (Apri) ibuprofen 600 mg tablet 600 mg PO Q6H PRN pain #20 tabs 01/11/22 tramadol 50 mg tablet 50 mg PO Q6H PRN pain #20 tabs 01/11/22 acetaminophen 500 mg tablet 500 mg PO Q6H PRN pain or fever 01/23/22 (Tylenol Extra Strength) #20 tabs fluticasone propionate 50 2 spray intranasal DAILY #16 grams 01/23/22 mcg/actuation nasal spray,suspension (Flonase Allergy Relief) oseltamivir 75 mg capsule (Tamiflu) 75 mg PO BID 5 days #10 caps 01/23/22 ondansetron 4 mg disintegrating 4 mg PO Q8H PRN nausea and 10/06/22 tablet vomiting #20 tabs <ESTER Grace Last Filed: 01/05/23 13:12> Allergies/Adverse reactions: Allergies Allergy/AdvReac Type Severity Reaction Status Date / Time No Known Allergies Allergy Verified 01/05/23 13:10 <ESTER Grace Last Filed: 01/05/23 13:12> Review of Systems Review of Systems: Constitutional: No Fever, No Chills ENT/Mouth:No Nasal Congestion, No Hoarseness, No sore throat, No Rhinorrhea, No Swallowing Difficulty Cardiovascular: No Chest Pain, No SOB Respiratory: No Cough, No Sputum, No Wheezing Gastrointestinal: No Nausea, No Vomiting, No Diarrhea, No Constipation, No Abdominal pain Musculoskeletal: + joint pain, No Myalgias, + Joint Swelling Skin: +thumb discoloration, No Skin Lesions, No rash Neuro: No Weakness, No Numbness, + Paresthesias <ESTER Moreno Last Filed: 01/05/23 19:23> Yes all other systems are reviewed and are negative <ESTER Moreno Last Filed: 01/05/23 19:23> Constitutional: Constitutional: Reports as per HPI <ESTER Moreno - Last Filed: 01/05/23 19:23> [facility] Past Medical History Attestation statement: The following information was validated with the patient. <ESTER Moreno - Last Filed: 01/05/23 19:23> Medical History: Medical History Right upper quadrant pain <ESTER Grace - Last Filed: 01/05/23 13:12> Surgical History: Surgical History History of cholecystectomy <ESTER Grace - Last Filed: 01/05/23 13:12> Social History Social History: Social History Alcohol intake: never Substance Use Type: Marijuana Advance Directives: No Advance Directives Information Provided: No <ESTER Grace - Last Filed: 01/05/23 13:12> Physical Exam Vital Signs: Vital Signs: Last Vital Signs Temp 98 F 01/05/23 13:10 Pulse 84 01/05/23 13:10 Resp 15 01/05/23 13:10 BP 126/78 01/05/23 13:10 Pulse Ox 99 01/05/23 13:10 O2 Del Method Room Air 01/05/23 13:10 BMI result Body Mass Index 30.1 <ESTER Grace - Last Filed: 01/05/23 13:12> Vital Signs: Last Vital Signs Temp 98 F 01/05/23 13:10 Pulse 84 01/05/23 13:10 Resp 15 01/05/23 13:10 BP 126/78 01/05/23 13:10 Pulse Ox 99 01/05/23 13:10 O2 Del Method Room Air 01/05/23 13:10 BMI result Body Mass Index 30.1 <ESTER Moreno - Last Filed: 01/05/23 19:23> Const: General: cooperative, healthy appearing and no acute distress <ESTER Moreno - Last Filed: 01/05/23 19:23> Orientation/consciousness: patient oriented x3 <ESTER Moreno - Last Filed: 01/05/23 19:23> Limitations: no limitations <ESTER Moreno - Last Filed: 01/05/23 19:23> HEENT: Head: Yes normal to inspection and Yes atraumatic <Daysi Barlow PA - Last Filed: 01/05/23 19:23> Ears: hearing grossly normal bilaterally <ESTER Moreno - Last Filed: 01/05/23 19:23> General nose exam: Normal external nose present <ESTER Moreno - Last Filed: 01/05/23 19:23> Face and sinus: Yes normal facial exam <ESTER Moreno - Last Filed: 01/05/23 19:23> Eyes: General: appearance normal, both eyes and all related structures <ESTER Moreno - Last Filed: 01/05/23 19:23> EOM: EOMs intact bilaterally <ESTER Moreno - Last Filed: 01/05/23 19:23> Neck: Neck: Yes normal visual inspection and Yes no meningeal signs <Daysi Barlow PA - Last Filed: 01/05/23 19:23> Resp: Effort & Inspection: normal respiratory effort and no respiratory distress <Daysi Barlow PA - Last Filed: 01/05/23 19:23> Cardio: Rate: regular rate <ESTER Moreno - Last Filed: 01/05/23 19:23> Heart sounds: S1 normal heart sound present and S2 normal heart sound present <ESTER Moreno - Last Filed: 01/05/23 19:23> Peripheral pulses: radial pulses present and ulnar radial pulses present <ESTER Moreno - Last Filed: 01/05/23 19:23> Skin: Rashes: no rashes <ESTER Moreno - Last Filed: 01/05/23 19:23> Neuro: General: patient oriented x3, tone normal, no meningeal signs and CN's II-XI intact bilaterally <ESTER Moreno - Last Filed: 01/05/23 19:23> Gait exam (Neuro): Normal gait present <ESTER Moreno Last Filed: 01/05/23 19:23> Extrem: Other: left 1st digit with noted subungual hematoma, with mild swelling and erythema. + Diffusely tender to palpation. mild limited ROM 2/2 pain. No anatomical snuffbox tenderness. Eeuyiu-ne-nqqvf opposition intact. Sensation intact to light touch <ESTER Moreno Last Filed: 01/05/23 19:23> Course Course Course Narrative: This is an RME: Additional HPI, ROS, PE not included below will be deferred to primary provider. 22-year-old female presents with pain to left thumb, with associated numbness and tingling x2 days. Patient reports 2 days ago she accidentally slammed the car door on her hand got caught. Patient reports she has been taking [id number] pain medicine with little to no relief. No previous issues with this finger. On physical exam there is a subungual hematoma to left thumb nail and pain with palpation overlying anatomical snuffbox region. 2+ radial pulses. Neurovascular status intact. Plan imaging <ESTER Grace - Last Filed: 01/05/23 13:12> This is an RME: Additional HPI, ROS, PE not included below will be deferred to primary provider. 22-year-old female presents with pain to left thumb, with associated numbness and tingling x2 days. Patient reports 2 days ago she accidentally slammed the car door on her hand got caught. Patient reports she has been taking taen-pvd-[id number] pain medicine with little to no relief. No previous issues with this finger. On physical exam there is a subungual hematoma to left thumb nail and pain with palpation overlying anatomical snuffbox region. 2+ radial pulses. Neurovascular status intact. Plan imaging 1600--XR hand wrist LT IMPRESSION: Normal left hand and wrist. Results discussed with patient including worrisome signs and symptoms and strict return precautions, and when to return to the emergency department. They verbalized understanding and feel safe for discharge at this time. <ESTER Moreno Last Filed: 01/05/23 19:23> Medical Decision Making Medical Decision Making MDM Narrative: 22-year-old female with no significant PMHx presents to the ED c/o pain, swelling, and discoloration to the left thumb after closing a car door on it 2 days ago. Reports limited ROM due to pain & tingling. Took extra-strength Tylenol x4 without relief. on physical exam vital signs stable, subungual hematoma noted to left thumb with swelling and mild decreased ROM due to pain. Concern for fracture/sprain and subungual hematoma. Less concern for septic arthritis/joint, paronychia, cellulitis, scaphoid fracture Plan: x-ray, evacuate subungual hematoma <ESTER Moreno - Last Filed: 01/05/23 19:23> Differential Diagnosis Differential Diagnoses: The differential diagnosis associated with the presentation includes <ESTER Moreno Last Filed: 01/05/23 19:23> As above <ESTER Moreno - Last Filed: 01/05/23 19:23> Admission/Observation Consideration of admission/observation: Escalation of care including admission/observation considered <ESTER Moreno - Last Filed: 01/05/23 19:23> Lab Data MDM Lab Attestation statement: I reviewed the patient's lab results. <ESTER Moreno - Last Filed: 01/05/23 19:23> Radiology Impression Discussion of test interpretation with radiology: I have reviewed the radiologist's reading. <ESTER Moreno - Last Filed: 01/05/23 19:23> External Record Review External record reviewed: Inpatient record, Office record, Outpatient record, Prior outpatient labs, Prior outpatient radiology, Primary care record and Outside ED record <ESTER Moreno Last Filed: 01/05/23 19:23> Procedures Nail Trephination Location (finger): left <ESTER Moreno - Last Filed: 01/05/23 19:23> Location (toes): first digit <ESTER Moreno Last Filed: 01/05/23 19:23> Sterile prep: other <ESTER Moreno Last Filed: 01/05/23 19:23> Method of drainage: nail cautery <ESTER Moreno Last Filed: 01/05/23 19:23> Procedure successful: Yes <ESTER Moreno Last Filed: 01/05/23 19:23> Patient tolerated procedure: No Complications <ESTER Moreno Last Filed: 01/05/23 19:23> Discharge Plan Discharge Clinical Impression: Crush injury, Subungual hematoma of digit of hand <ESTER Grace Last Filed: 01/05/23 13:12> Patient Disposition: Home, Self-Care <ESTER Grace Last Filed: 01/05/23 13:12> Instructions: Subungual Hematoma (ED) <ESTER Grace Last Filed: 01/05/23 13:12> Additional Instructions: your x-ray does not show a fracture. Your nail hematoma was drained today. Please practice warm compresses/soaks at home and continue to milk blood out of the area. If area begins to look infected, is red, increasingly swollen, pain becomes unbearable or you have fever return to the ED <ESTER Grace Last Filed: 01/05/23 13:12> Prescriptions: No Action hydroxyzine HCl 25 mg tablet 25 mg PO TID PRN (Reason: anxiety) Qty: 10 0RF nitrofurantoin monohyd/m-cryst [Macrobid] 100 mg capsule 100 mg PO BID Qty: 14 0RF Rx Instructions: must administer with a meal/food naproxen 500 mg tablet 500 mg PO BID PRN (Reason: pain) Qty: 20 0RF tramadol 50 mg tablet 50 mg PO Q6H PRN (Reason: pain) Qty: 20 0RF ibuprofen 600 mg tablet 600 mg PO Q6H PRN (Reason: pain) Qty: 20 0RF desogestrel-ethinyl estradiol [Apri] 0.15-0.03 mg tablet 1 tab PO DAILY Qty: 28 0RF ondansetron 4 mg tablet,disintegrating 4 mg PO Q8H PRN (Reason: nausea and vomiting) Qty: 20 0RF oseltamivir [Tamiflu] 75 mg capsule 75 mg PO BID 5 Days Qty: 10 0RF acetaminophen [Tylenol Extra Strength] 500 mg tablet 500 mg PO Q6H PRN (Reason: pain or fever) Qty: 20 0RF fluticasone propionate [Flonase Allergy Relief] 50 mcg/actuation spray,suspension 2 spray intranasal DAILY Qty: 16 0RF Rx Instructions: administer into each nostril <ESTER Grace - Last Filed: 01/05/23 13:12> Referrals: [facility] [Primary Care Provider] - 2 days <ESTER Grace - Last Filed: 01/05/23 13:12> Stand Alone Forms: Work/School Release <ESTER Grace - Last Filed: 01/05/23 13:12> Interventions: ED Discharge Assessment Last Done: 01/05/23 16:53 <ESTER Grace - Last Filed: 01/05/23 13:12> Discharge Date/Time: 01/05/23 16:53 <ESTER Grace - Last Filed: 01/05/23 13:12>
== END 2023-01-05 16:53 | disposition home or self-care (01) ==
PROVIDERS: Emergency Provider Emergency Medicine Emergency Medical Services
DX: S60.112A Contusion of left thumb with damage to nail, initial encounter (principal); W23.0XXA Caught, crushed, jammed, or pinched between moving objects, initial encounter; Y93.89 Activity, other specified; Y92.810 Car as the place of occurrence of the external cause; Y99.9 Unspecified external cause status
CPT/HCPCS: 11740; 73110; 73130; 99282; 99283

== ENCOUNTER 2023-07-04 19:00 | Emergency (ER) | payer SELFPAY ==
[2023-07-04 20:11] VITALS: BP 113/67; PULSE 74; RESP 16; TEMP 36.5; O2SAT 99; BMI 32.5
[2023-07-04 20:27] LABS: IDNOW Serial# 08D9AD1C
[2023-07-04 20:28] LABS: COVID-19 Test Negative (Negative)
[2023-07-04 20:30] LABS: IDNOW Serial# BCCEAD1C; Influenza A Negative (Negative); Influenza B2 Negative (Negative)
[2023-07-04 21:19] VITALS: BP 104/71; PULSE 82; RESP 18; TEMP 36.8; O2SAT 97
[2023-07-04 21:48] LABS: MANUAL DIFF FLAG NO
[2023-07-04 21:50] LABS: Basophils Percent Auto 0.3 % (0-2); Eosinophils Percent Auto 0.2 % (0-4); Hematocrit 35.7 % (37.0-47.0); Hemoglobin 11.8 g/dl (12.0-16.0); Imm Gran Abs Auto 0.04 X10*3/uL (0.00-0.03); Imm Gran Pct Auto 0.4 % (0.0-0.4); Lymphocytes Absolute Auto 1.2 X10*3/uL (1.2-4.9); Lymphocytes Percent Auto 10.9 % (20-40); Mean Corpuscular HGB Conc 33.1 g/dl (31.0-35.0); Mean Corpuscular Hemoglobin 28.6 pg (27.0-33.0); Mean Corpuscular Volume 86.4 fL (80.0-98.0); Mean Platelet Volume 8.8 fL (9.4-12.3); Monocytes Absolute Auto 0.4 X10*3/uL (0.1-1.2); Monocytes Percent Auto 3.5 % (2-11); Neutrophils Absolute Auto 9.1 x10*3/uL (2.0-8.3); Neutrophils Percent Auto 84.7 % (45-73); Platelet Count 318 X10*3/uL (160-400); Red Blood Count 4.13 X10*6/uL (4.20-5.50); White Blood Count 10.7 X10*3/uL (4.8-10.8)
[2023-07-04 21:51] LABS: Appearance Urine Cloudy; Color Urine Yellow; Glucose Urine UA Negative (Negative); Leukocyte Esterase Urine Small (1+) (Negative); Nitrite Urine Negative (Negative); UMIC TRIGGER UACC YES; Urine Blood Negative (Negative); Urine Ketones 15 mg/dL (Negative); Urine Protein Negative (Neg-Trace)
--- NOTE | 2023-07-04 21:52 | ED_ITS ---
HPI - General Adult General Chief complaint: General Medical Stated complaint: headache, fatigue, Vomiting Time Seen by Provider: 07/04/23 21:28 Source: patient Mode of arrival: ambulatory Limitations: no limitations History of Present Illness HPI narrative: Patient is a 23-year-old female with history of migraines presenting to the emergency department with complaint of headache, nausea, vomiting since this afternoon. States that symptoms began with a headache while at work then after returning home at the end of her shift she developed nausea and vomiting. Denies headache worst at onset, denies worse headache of life. Denies any vision changes. Reports that emesis was nonbloody, nonbilious. She denies any abdominal pain, denies diarrhea or constipation. She denies any dysuria, frequency, hematuria or other urinary symptoms. Denies back or flank pain. Denies fevers. Did not take any rkkr-rca-[id number] medications for her symptoms. Has been able to tolerate jessie lubna after vomiting. States that she does not typically experience nausea and vomiting with migraines. MD complaint: Headache, nausea, vomiting Onset (ago): hour(s) Location: head Radiation: non-radiation Severity: severe Severity scale (1-10): 9 Quality: aching Pain Consistency: constant Relieving factors: none Exacerbating factors: none Associated symptoms: nausea/vomiting Treatments prior to arrival: none Related Data Previous Rx's Medication Instructions Recorded hydroxyzine HCl 25 mg tablet 25 mg PO TID PRN anxiety #10 tabs 02/25/21 naproxen 500 mg tablet 500 mg PO BID PRN pain #20 tabs 11/05/21 nitrofurantoin 100 mg PO BID #14 caps 11/05/21 monohydrate/macrocrystals 100 mg capsule (Macrobid) desogestrel 0.15 mg-ethinyl 1 tab PO DAILY #28 tabs 01/11/22 estradiol 0.03 mg tablet (Apri) ibuprofen 600 mg tablet 600 mg PO Q6H PRN pain #20 tabs 01/11/22 tramadol 50 mg tablet 50 mg PO Q6H PRN pain #20 tabs 01/11/22 acetaminophen 500 mg tablet 500 mg PO Q6H PRN pain or fever 01/23/22 (Tylenol Extra Strength) #20 tabs fluticasone propionate 50 2 spray intranasal DAILY #16 grams 01/23/22 mcg/actuation nasal spray,suspension (Flonase Allergy Relief) oseltamivir 75 mg capsule (Tamiflu) 75 mg PO BID 5 days #10 caps 01/23/22 ondansetron 4 mg disintegrating 4 mg PO Q8H PRN nausea and 10/06/22 tablet vomiting #20 tabs ondansetron 4 mg disintegrating 4 mg PO Q8H PRN nausea and 07/04/23 tablet vomiting #10 tabs Allergies Allergy/AdvReac Type Severity Reaction Status Date / Time No Known Allergies Allergy Verified 01/05/23 13:10 Review of Systems 2 Review of Systems: As per HPI. Yes all other systems are reviewed and are negative Constitutional: Constitutional: Reports as per HPI [facility] Past Medical History Medical History Right upper quadrant pain Surgical History History of cholecystectomy Social History Social History Alcohol intake: never Smoked in Last 30 Days: No Use of substances other than those prescribed or required for medical reasons: Yes Substance Use Type: Marijuana Substance Use Frequency: Daily Last Used Substance: Hours (ago) Advance Directives: No Advance Directives Information Provided: No Patient : No Physical Exam ED Vital Signs: Vital Signs - 24 hr 07/04/23 20:11 07/04/23 21:19 Temperature 97.7 F 98.2 F Pulse Rate 74 82 Respiratory Rate 16 18 Blood Pressure 113/67 104/71 Pulse Oximetry 99 97 Oxygen Delivery Method Room Air Room Air BMI result Body Mass Index 32.5 Vital signs have been reviewed and appear to be correct. Blood pressure normal. Heart rate normal. Respiratory rate normal. Temperature normal. Oxygen saturation normal. Const General: cooperative, healthy appearing and no acute distress Orientation/consciousness: oriented to person, oriented to place, oriented to time and patient oriented x3 Limitations: no limitations HENMT Head: Yes normocephalic and Yes atraumatic Ears: external ears normal General nose exam: Normal external nose present Face and sinus: Yes face symmetric Mouth: oropharynx normal and moist mucous membranes Throat: Yes uvula midline Eyes Pupils: Equal, round and reactive pupils present Neck Neck: Yes normal visual inspection and Yes supple Resp Effort & Inspection: normal respiratory effort and able to speak in complete sentences Auscultation: clear to auscultation bilaterally Cardio Rate: regular rate Rhythm: regular rhythm Heart sounds: S1 normal heart sound present and S2 normal heart sound present GI Palpation (GI): Soft to palpation and nontender Auscultation: normoactive bowel sounds General: Yes no CVA tenderness Back/Spine/Pelvis Back: no CVA tenderness Skin General skin exam: elasticity normal and turgor normal Neuro General: oriented to person, oriented to place, oriented to time, patient oriented x3, moves all extremities, no focal motor deficits and CN's II-XI intact bilaterally Cranial nerves: Yes Equal, round and reactive pupils present Cognition (Neuro): normal cognition Extrem General: Yes full ROM, Yes no pedal edema and Yes no calf tenderness Psych Mental Status: mental status grossly normal Affect: normal affect Thought process: Normal thought process present Medical Decision Making Medical Decision Making MDM Narrative: Patient is a 23-year-old female with history of migraines presenting to the emergency department with complaint of headache, nausea, vomiting since this afternoon. On exam patient is awake, A+Ox3, VS WNL, afebrile, normal neurological exam without focal deficits, physical exam as above. Given reported symptoms and physical exam findings, initial differential includes migraine, tension headache, gastritis, viral illness, COVID, flu, ectopic . Do not suspect cholecystitis, appendicitis. Labs notable for no leukocytosis, mild anemia consistent with prior values, no electrolyte abnormalities, urine hCG negative. Swabs for flu and COVID negative. UA with 1+ leukocytes, 3+ bacteria, 11-20 epithelial cells so likely contamination as patient denies any urinary symptoms. Patient refusing IV fluids and IV medications as ordered, stating she wishes to be discharged and given p.o. medications. Will order p.o. medications, feel patient is stable for discharge home at this time. Will prescribed p.r.n. Zofran. Advised patient to ensure adequate fluid intake, adequate rest. Instructed patient to follow-up with primary care provider. Return precautions discussed at bedside. Patient verbalized understanding of and agreement with plan. Differential Diagnosis Differential Diagnoses: The differential diagnosis associated with the presentation includes As per [facility]. Lab Data [facility] Lab Attestation statement: I reviewed the patient's lab results. As per MDM. 07/04/23 21:42 07/04/23 21:42 Labs: Lab Results 07/04/23 07/04/23 Range/Units 20:08 21:42 WBC 10.7 (4.8-10.8) X10*3/uL RBC 4.13 L (4.20-5.50) X10*6/uL Hgb 11.8 L (12.0-16.0) g/dl Hct 35.7 L (37.0-47.0) % MCV 86.4 (80.0-98.0) fL MCH 28.6 (27.0-33.0) pg MCHC 33.1 (31.0-35.0) g/dl RDW 14.0 (11.0-16.0) % Plt Count 318 (160-400) X10*3/uL MPV 8.8 L (9.4-12.3) fL Immature Gran % (Auto) 0.4 (0.0-0.4) % Neut % (Auto) 84.7 H (45-73) % Lymph % (Auto) 10.9 L (20-40) % [place] % (Auto) 3.5 (2-11) % Eos % (Auto) 0.2 (0-4) % Baso % (Auto) 0.3 (0-2) % Lymph # (Auto) 1.2 (1.2-4.9) X10*3/uL [place] # (Auto) 0.4 (0.1-1.2) X10*3/uL Eos # (Auto) 0.0 (0.0-0.4) X10*3/uL Baso # (Auto) 0.0 (0.0-0.2) X10*3/uL Abs Immat Gran (auto) 0.04 H (0.00-0.03) X10*3/uL Absolute Neuts (auto) 9.1 H (2.0-8.3) x10*3/uL Absolute Nucleated RBC 0.000 (0.0-0.012) X10*3/uL Nucleated RBC % (auto) 0.0 (0.0-0.2) /100WBC Sodium 139 (135-145) mmol/L Potassium 3.9 (3.3-5.1) mmol/L Chloride 107 (96-108) mmol/L Carbon Dioxide 21 L (22-29) mmol/L Anion Gap 15 (12-20) BUN 9 (9-16) mg/dL Creatinine 0.60 (0.5-1.4) mg/dL Estim Creat Clear Calc 151.5 Estimated GFR > 60 Random Glucose 97 (60-115) mg/dL Calcium 9.5 (8.4-10.2) mg/dL Total Bilirubin 0.3 (0.0-1.0) mg/dL AST 15 (5-31) U/L ALT 10 (0-31) U/L Alkaline Phosphatase 91 (39-117) U/L Total Protein 7.8 (6.5-8.0) g/dL Albumin 4.4 (3.5-5.0) g/dL Urine Color Yellow Urine Appearance Cloudy Urine pH 8.0 (5.0-9.0) Ur Specific [place] 1.020 (1.005-1.025) Urine Protein Negative (Neg-Trace) mg/dL Urine Glucose (UA) Negative (Negative) mg/dL Urine Ketones 15 (Negative) mg/dL Urine Blood Negative (Negative) Urine Nitrite Negative (Negative) Ur Leukocyte Esterase Small (1+) H (Negative) Urine RBC 3-5 H (0-2) /HPF Urine WBC 0-5 (0-5) /HPF Ur Squamous Epith Cells 11-20 (0-2) /HPF Urine Bacteria 3+ (None Seen) Hyaline Casts 0-2 (0-2) /LPF Urine Test NEGATIVE (NEGATIVE) COVID-19 (MAGNUS) Negative (Negative) COVID-19 Clin Com See Note Influenza Type A (ROXANNA) Negative (Negative) Influenza Type B (ROXANNA) Negative (Negative) Influenza A & B Note See Note External Record Review External record reviewed: Inpatient record, Office record and Outpatient record Prescription Management I considered prescription management with: Other Discharge Plan Discharge Clinical Impression: Headache Qualifiers: Headache type: unspecified Headache chronicity pattern: acute headache I ntractability: not intractable Qualified Code(s): R51.9 - Headache, unspecified Nausea & vomiting Qualifiers: Vomiting type: unspecified Qualified Code(s): R11.2 - Nausea with vomiting, unspecified Patient Disposition: Home, Self-Care Instructions: Acute Headache (DC), Acute Nausea and Vomiting (ED) Additional Instructions: You were evaluated in the emergency department today for headache, nausea, and vomiting, which is most likely due to irritation of the lining of your stomach. Your symptoms improved with medication in the ED. you are being prescribed ondansetron which you can take every 8 hours as needed for nausea. Avoid spicy or acidic foods. Please follow up with your primary care physician within two days. Return to the emergency department if you experience shortness of breath, worsening or uncontrolled abdominal pain, chest pain, light headedness, fainting, persistent nausea and vomiting, bloody vomit or stools, black, tarry stools, or any other concerning symptoms. Prescriptions: New ondansetron 4 mg tablet,disintegrating 4 mg PO Q8H PRN (Reason: nausea and vomiting) Qty: 10 0RF No Action hydroxyzine HCl 25 mg tablet 25 mg PO TID PRN (Reason: anxiety) Qty: 10 0RF nitrofurantoin monohyd/m-cryst [Macrobid] 100 mg capsule 100 mg PO BID Qty: 14 0RF Rx Instructions: must administer with a meal/food naproxen 500 mg tablet 500 mg PO BID PRN (Reason: pain) Qty: 20 0RF tramadol 50 mg tablet 50 mg PO Q6H PRN (Reason: pain) Qty: 20 0RF ibuprofen 600 mg tablet 600 mg PO Q6H PRN (Reason: pain) Qty: 20 0RF desogestrel-ethinyl estradiol [Apri] 0.15-0.03 mg tablet 1 tab PO DAILY Qty: 28 0RF ondansetron 4 mg tablet,disintegrating 4 mg PO Q8H PRN (Reason: nausea and vomiting) Qty: 20 0RF oseltamivir [Tamiflu] 75 mg capsule 75 mg PO BID 5 Days Qty: 10 0RF acetaminophen [Tylenol Extra Strength] 500 mg tablet 500 mg PO Q6H PRN (Reason: pain or fever) Qty: 20 0RF fluticasone propionate [Flonase Allergy Relief] 50 mcg/actuation spray,suspension 2 spray intranasal DAILY Qty: 16 0RF Rx Instructions: administer into each nostril
[2023-07-04 21:55] LABS: UPreg QC Valid YES; Urine Pregnancy NEGATIVE (NEGATIVE)
[2023-07-04 22:10] LABS: Alanine Aminotransferase 10 U/L (0-31); Albumin Level 4.4 g/dL (3.5-5.0); Alkaline Phosphatase 91 U/L (39-117); Anion Gap 15 (12-20); Aspartate Amino Transferase 15 U/L (5-31); Bilirubin Total 0.3 mg/dL (0.0-1.0); Blood Urea Nitrogen 9 mg/dL (9-16); Calcium 9.5 mg/dL (8.4-10.2); Carbon Dioxide 21 mmol/L (22-29); Chloride 107 mmol/L (96-108); Creatinine Clr Calc Pharmacy 151.5; Estimated Glomerular Filt Rate > 60; Glucose Random 97 mg/dL (60-115); Potassium 3.9 mmol/L (3.3-5.1); Sodium 139 mmol/L (135-145); Total Protein 7.8 g/dL (6.5-8.0)
[2023-07-04 22:30] LABS: Bacteria Urine 3+ (None Seen); Hyaline Casts Urine 0-2 /LPF (0-2); UACC Culture Trigger YES; WBC Urine 0-5 /HPF (0-5)
--- NOTE | 2023-07-04 23:48 | PC.NURSE ---
PT refused meds and left after discharge from provider.
== END 2023-07-04 23:49 | disposition home or self-care (01) ==
PROVIDERS: Emergency Provider Emergency Medicine
DX: R11.2 Nausea with vomiting, unspecified (principal); R51.9 Headache, unspecified; R53.83 Other fatigue; Z79.899 Other long term (current) drug therapy; Z20.822 Contact with and (suspected) exposure to COVID-19; Z20.828 Contact with and (suspected) exposure to other viral communicable diseases
CPT/HCPCS: 36415; 80053; 81001; 81003; 81025; 85025; 87086; 87502; 87635; 96361; 96374; 96375; 99284

== ENCOUNTER 2023-10-10 23:41 | Emergency (ER) | payer SELFPAY ==
[2023-10-10 23:44] VITALS: BP 132/82; PULSE 91; RESP 18; TEMP 37.4; O2SAT 97; BMI 30.5
--- NOTE | 2023-10-11 01:24 | ED.GENADULT ---
HPI - General Adult General Chief complaint: General Medical Stated complaint: gum pain Time Seen by Provider: 10/11/23 00:25 History of Present Illness HPI narrative: patient is a 23-year-old female presents today with having pain to the upper gum. Patient claims that the pain is dull. There is no fever no chills. Happen after eating a sandwich. Patient stated she got a 2nd molar extracted a few months ago. Patient reported taking Tylenol with no pain relief. Have redness and an open area in the gum. No discharge noted. Related Data Previous Rx's Medication Instructions Recorded hydroxyzine HCl 25 mg tablet 25 mg PO TID PRN anxiety #10 tabs 02/25/21 naproxen 500 mg tablet 500 mg PO BID PRN pain #20 tabs 11/05/21 nitrofurantoin 100 mg PO BID #14 caps 11/05/21 monohydrate/macrocrystals 100 mg capsule (Macrobid) desogestrel 0.15 mg-ethinyl 1 tab PO DAILY #28 tabs 01/11/22 estradiol 0.03 mg tablet (Apri) ibuprofen 600 mg tablet 600 mg PO Q6H PRN pain #20 tabs 01/11/22 tramadol 50 mg tablet 50 mg PO Q6H PRN pain #20 tabs 01/11/22 acetaminophen 500 mg tablet 500 mg PO Q6H PRN pain or fever 01/23/22 (Tylenol Extra Strength) #20 tabs fluticasone propionate 50 2 spray intranasal DAILY #16 grams 01/23/22 mcg/actuation nasal spray,suspension (Flonase Allergy Relief) oseltamivir 75 mg capsule (Tamiflu) 75 mg PO BID 5 days #10 caps 01/23/22 ondansetron 4 mg disintegrating 4 mg PO Q8H PRN nausea and 10/06/22 tablet vomiting #20 tabs ondansetron 4 mg disintegrating 4 mg PO Q8H PRN nausea and 07/04/23 tablet vomiting #10 tabs ibuprofen 400 mg tablet 400 mg PO Q6H PRN pain #20 tabs 10/11/23 penicillin V potassium 500 mg 500 mg PO TID #20 tabs 10/11/23 tablet Allergies Allergy/AdvReac Type Severity Reaction Status Date / Time No Known Allergies Allergy Verified 10/10/23 23:44 Review of Systems Review of Systems: No fever no chills no systemic complaints Yes all other systems are reviewed and are negative [facility] Past Medical History Attestation statement: The following information was validated with the patient. Onset Date is defined in the Problem List Problems that require an onset date and time if occurred within 24 hrs of arrival to the ED Aortic Dissection and Rupture; Neurologic impairment; Cardiopulmonary Arrest; Endotracheal Intubation; Insertion or Replacement of Mechanical Circulatory Assist Device Medical History Right upper quadrant pain Surgical History (Reviewed 10/11/23 @ :25 by Leidy Pereira MD) History of cholecystectomy Social History Social History Alcohol intake: never Substance Use Type: Marijuana Advance Directives: No Advance Directives Information Provided: Yes Physical Exam ED Vital Signs: Vital Signs - 24 hr 10/10/23 23:44 Temperature 99.3 F Pulse Rate 91 Respiratory Rate 18 Blood Pressure 132/82 Pulse Oximetry 97 Oxygen Delivery Method Room Air BMI result Body Mass Index 30.5 Appearance: Alert. Oriented X3. No acute distress. Dentition- positive minimal swelling over the right 2nd upper molar Area. There is no fluctuance noted. There is no discharge noted. Positive cavity noted around that area. Eyes: Pupils equal, round and reactive to light. ENT: Pharynx normal. Neck: Normal inspection. Neck supple. No lymph nodes noted. No crepitus CVS: Normal heart rate and rhythm. Pulses normal. Normal S1 and S2 Respiratory: No respiratory distress. Breath sounds normal. No Wheezing. No rales Abdomen: Soft and nontender. No rigidity. No distention. good BS x4 Skin: Skin warm and dry. Normal skin color. Normal skin turgor. Extremities: No lower extremity edema. Neurovascular intact to all extremities. No Lacerations. No Rash Neuro: Oriented X 3. No motor deficit. No sensory deficit. Moving all extermities. No slurred speech Medical Decision Making Medical Decision Making MDM Narrative: will start patient on penicillin for the gum infection. Pain medication given. Follow-up on an outpatient basis with Dentistry. Patient has a dentist on an outpatient basis Differential Diagnosis dental cavity infection Admission/Observation Consideration of admission/observation: Escalation of care including admission/observation considered no need to admit this patient is symptomatically improving Discharge Plan Discharge Clinical Impression: Pain, dental Patient Disposition: Home, Self-Care Instructions: Toothache (ED) Prescriptions: New penicillin V potassium 500 mg tablet 500 mg PO TID Qty: 20 0RF ibuprofen 400 mg tablet 400 mg PO Q6H PRN (Reason: pain) Qty: 20 0RF No Action hydroxyzine HCl 25 mg tablet 25 mg PO TID PRN (Reason: anxiety) Qty: 10 0RF nitrofurantoin monohyd/m-cryst [Macrobid] 100 mg capsule 100 mg PO BID Qty: 14 0RF Rx Instructions: must administer with a meal/food naproxen 500 mg tablet 500 mg PO BID PRN (Reason: pain) Qty: 20 0RF tramadol 50 mg tablet 50 mg PO Q6H PRN (Reason: pain) Qty: 20 0RF ibuprofen 600 mg tablet 600 mg PO Q6H PRN (Reason: pain) Qty: 20 0RF desogestrel-ethinyl estradiol [Apri] 0.15-0.03 mg tablet 1 tab PO DAILY Qty: 28 0RF ondansetron 4 mg tablet,disintegrating 4 mg PO Q8H PRN (Reason: nausea and vomiting) Qty: 20 0RF oseltamivir [Tamiflu] 75 mg capsule 75 mg PO BID 5 Days Qty: 10 0RF acetaminophen [Tylenol Extra Strength] 500 mg tablet 500 mg PO Q6H PRN (Reason: pain or fever) Qty: 20 0RF fluticasone propionate [Flonase Allergy Relief] 50 mcg/actuation spray,suspension 2 spray intranasal DAILY Qty: 16 0RF Rx Instructions: administer into each nostril ondansetron 4 mg tablet,disintegrating 4 mg PO Q8H PRN (Reason: nausea and vomiting) Qty: 10 0RF Referrals: Physician,Unknown J [Primary Care Provider] - ( please follow-up with your dentist in a.m..)
== END 2023-10-11 01:36 | disposition home or self-care (01) ==
PROVIDERS: Emergency Provider Emergency Medicine Emergency Medical Services
DX: K08.89 Other specified disorders of teeth and supporting structures (principal); Z79.899 Other long term (current) drug therapy
CPT/HCPCS: 99283